=== PATIENT | male | born 1965 | race Caucasian/White ===

== ENCOUNTER 2016-07-04 12:38 | Emergency (ER) | payer OTHER, BC ==
--- NOTE | 2016-07-04 13:21 | Emergency Department Record ---
History of Present Illness - General Chief complaint: Bite Insect/other Stated complaint: BUG BIT ON LEFT LEG Time Seen by Provider: 07/04/16 13:21 Source: Patient, RN notes reviewed Mode of Arrival: Ambulatory - History of Present Illness Initial comments: redness on the back of the left leg and he squeezed out pus yesterday and he has had these before. Onset/Timin -: Days(s) Hx Tetanus Toxoid Vaccination: Yes Patient Tetanus UTD (within 5 yrs): Yes Location: LLE Severity: Moderate Severity scale (1-10): 7 Quality: Aching Consistency: Constant Improves with: Immobilization, Rest Worsens with: Movement Context: None Associated symptoms: Itching - Related Data Home Medications Medication Instructions Recorded Confirmed Last Taken Bupropion HCl [Bupropion Xl] 150 mg PO QHS 02/04/14 07/04/16 1 Day Ago Citalopram Hydrobromide 20 mg PO QHS 02/04/14 07/04/16 1 Day Ago [Citalopram HBr] Glipizide [Glipizide ER] 5 mg PO DAILY 02/04/14 07/04/16 07/03/16 Metformin HCl [Glucophage] 1,000 mg PO BID 02/04/14 07/04/16 07/03/16 Previous Rx's Medication Instructions Recorded Sulfamethoxazole/Trimethoprim 1 each PO BID #20 tablet 07/04/16 [Bactrim Ds Tablet] Allergies Allergy/AdvReac Type Severity Reaction Status Date / Time lisinopril Allergy RESPIRATORY Unverified 03/05/16 19:54 IRRITATION Travel Screening - Travel/Exposure Within Last 30 Days Have you traveled within the last 30 days?: No Review of Systems Reviewed: No additional complaints except as noted below Constitutional: Reports: As per HPI. Denies: Chills, Fever, Malaise, Night sweats, Weakness, Weight change Eyes: Reports: As per HPI. Denies: Eye discharge, Eye pain, Photophobia, Vision change ENT: Reports: As per HPI. Denies: Congestion, Dental pain, Ear pain, Epistaxis , Hearing loss, Throat pain Respiratory: Reports: As per HPI. Denies: Cough, Dyspnea, Hemoptysis, Stridor, Wheezes Cardiovascular: Reports: As per HPI. Denies: Arrhythmia, Chest pain, Dyspnea on exertion, Edema, Murmurs, Orthopnea, Palpitations, Paroxysmal nocturnal dyspnea, Rheumatic Fever, Syncope Endocrine: Reports: As per HPI. Denies: Fatigue, Heat or cold intolerance, Polydipsia, Polyuria Gastrointestinal: Reports: As per HPI. Denies: Abdominal pain, Constipation, Diarrhea, Hematemesis, Hematochezia, Melena, Nausea, Vomiting Genitourinary: Reports: As per HPI. Denies: Dysuria, Frequency, Hematuria, Incontinence, Retention, Testicular pain, Testicular mass, Urgency Musculoskeletal: Reports: As per HPI. Denies: Arthralgia, Back pain, Gout, Joint swelling, Myalgia, Neck pain Skin: Reports: As per HPI, Other (furuncle with redness and it drained by him sqeezing yesterday). Denies: Bruising, Change in color, Change in hair/nails, Lesions, Pruritus, Rash Neurological: Reports: As per HPI. Denies: Abnormal gait, Confusion, Headache, Numbness, Paresthesias, Seizure, Tingling, Tremors, Vertigo, Weakness Psychiatric: Reports: As per HPI. Denies: Anxiety, Auditory hallucinations, Depression, Homicidal thoughts, Suicidal thoughts, Visual hallucinations Hematological/Lymphatic: Reports: As per HPI. Denies: Anemia, Blood Clots, Easy bleeding, Easy bruising, Swollen glands Past Medical History - SOCIAL HISTORY Smoking Status: Never smoker Alcohol Use: None Drug Use: None - RESPIRATORY Hx Respiratory Disorders: No - CARDIOVASCULAR Hx Cardio Disorders: No - NEURO Hx Neuro Disorders: No - GI Hx GI Disorders: No - Hx Genitourinary Disorders: No - ENDOCRINE Hx Endocrine Disorders: Yes Hx Diabetes: Yes - MUSCULOSKELETAL Hx Musculoskeletal Disorders: No - PSYCH Hx Psych Problems: Yes Hx Depression: Yes - HEMATOLOGY/ONCOLOGY Hx Hematology/Oncology Disorders: No Family Medical History Any Significant Family History?: Yes Hx Heart Disease: Father, Mother, Grandparents Hx HTN: Father, Mother Physical Exam - General General Appearance: Alert, Oriented x3, Cooperative, No acute distress - Head Head exam: Normal inspection - Eye Eye exam: Normal appearance, PERRL Pupils: Normal accommodation - ENT ENT exam: Normal exam, Mucous membranes moist, Normal external ear exam, Normal orophraynx, TM's normal bilaterally Ear exam: Normal external inspection. negative: External canal tenderness Nasal Exam: Normal inspection. negative: Discharge, Sinus tenderness Mouth exam: Normal external inspection, Tongue normal Teeth exam: Normal inspection. negative: Dental caries Throat exam: Normal inspection. negative: Tonsillar erythema, Tonsillar exudate - Neck Neck exam: Normal inspection, Full ROM. negative: Tenderness - Respiratory Respiratory exam: Normal lung sounds bilaterally. negative: Respiratory distress - Cardiovascular Cardiovascular Exam: Regular rate, Normal rhythm, Normal heart sounds - GI/Abdominal GI/Abdominal exam: Soft, Normal bowel sounds. negative: Tenderness - Rectal Rectal exam: Deferred - exam: Deferred - Extremities Extremities exam: Normal inspection, Full ROM, Normal capillary refill. negative: Tenderness - Back Back exam: Reports: Normal inspection, Full ROM. Denies: Muscle spasm, Rash noted, Tenderness - Neurological Neurological exam: Alert, Normal gait, Oriented X3, Reflexes normal - Psychiatric Psychiatric exam: Normal affect, Normal mood - Skin Skin exam: Warm, Other (red skin around a furucle and painful) Course Vital Signs 07/04/16 12:44 Temperature 97.4 F L Pulse Rate 91 H Respiratory 16 Rate Blood Pressure 138/89 Pulse Ox 100 nothing to drain Disposition Clinical Impression: Cellulitis Qualifiers: Site of cellulitis: extremity Site of cellulitis of extremity: lower extremity Laterality: left Qualified Code(s): L03.116 - Cellulitis of left lower limb Disposition: Home, Self-Care Condition: (1) Good Instructions: Cellulitis (ED) Additional Instructions: warm compresses to the area four times a day follow up with family in 2 to 5 days Prescriptions: Sulfamethoxazole/Trimethoprim [Bactrim Ds Tablet] 1 each PO BID #20 tablet Forms: Patient Portal Access Time of Disposition: 14:20
[2016-07-04] MEDS ORDERED: CLINDAMYCIN 600MG/50ML PREMIX 600 MG in DEXTROSE 1 BAG IV ONE (13:36)
== END 2016-07-04 15:10 | disposition home or self-care (01) ==
LOC: ER 12:38
DX: L03.116 Cellulitis of left lower limb (principal)
CPT/HCPCS: 96365; 99284

== ENCOUNTER 2016-07-06 13:42 | Observation (INO) | payer OTHER, BC ==
[2016-07-06] MEDS ORDERED: CLINDAMYCIN 600MG/50ML PREMIX 600 MG in DEXTROSE 1 BAG IV ONE (13:53)
--- NOTE | 2016-07-06 14:00 | Emergency Department Record ---
History of Present Illness - General Chief Complaint: Wound, check Stated Complaint: WOUND CHECK Time Seen by Provider: 07/06/16 13:44 Source: Patient, Family Mode of arrival: Ambulatory Limitations: No limitations - History of Present Illness Initial Comments: 50 yo male presents with redness and swelling of the lower leg behind the knee. The area started with a papule that he thought might be a bite. He did not witness any bits. He was seen in the ED on the . The area has increased in redness and swelling on Bactrim. No other current symptoms. He is allergic to PCN. Per the patient the redness was localized to behind the knee on the but now it is down the leg near the foot. MD Complaint: Wound re-check -: Days(s) (3) Initial Visit For: Abscess Returns Today for: Cellulitis follow-up Symptoms Since Prior Visit: Worsening redness Associated Symptoms: None - Related Data Home Medications Medication Instructions Recorded Confirmed Last Taken Bupropion HCl [Bupropion Xl] 150 mg PO QHS 02/04/14 07/06/16 07/05/16 Citalopram Hydrobromide 20 mg PO QHS 02/04/14 07/06/16 07/05/16 [Citalopram HBr] Glipizide [Glipizide ER] 5 mg PO DAILY 02/04/14 07/06/16 07/06/16 Metformin HCl [Glucophage] 1,000 mg PO BID 02/04/14 07/06/16 07/06/16 Previous Rx's Medication Instructions Recorded Sulfamethoxazole/Trimethoprim 1 each PO BID #20 tablet 07/04/16 [Bactrim Ds Tablet] Allergies Allergy/AdvReac Type Severity Reaction Status Date / Time amoxicillin Allergy heartburn Verified 07/06/16 14:06 lisinopril Allergy RESPIRATORY Verified 07/06/16 14:06 IRRITATION Review of Systems Constitutional: Denies: Chills, Fever, Weakness Eyes: Denies: Eye discharge ENT: Denies: Congestion, Throat pain Respiratory: Denies: Cough Cardiovascular: Denies: Chest pain, Palpitations, Syncope Endocrine: Denies: Fatigue Gastrointestinal: Denies: Abdominal pain, Diarrhea, Nausea, Vomiting Genitourinary: Denies: Hematuria Musculoskeletal: Reports: Myalgia. Denies: Arthralgia, Back pain Skin: Reports: Change in color, Rash Neurological: Denies: Headache Psychiatric: Denies: Anxiety Hematological/Lymphatic: Denies: Blood Clots, Easy bleeding, Easy bruising, Swollen glands Past Medical History - SOCIAL HISTORY Smoking Status: Never smoker Drug Use: None - RESPIRATORY Hx Respiratory Disorders: No - CARDIOVASCULAR Hx Cardio Disorders: No - NEURO Hx Neuro Disorders: No - GI Hx GI Disorders: No - Hx Genitourinary Disorders: No - ENDOCRINE Hx Endocrine Disorders: Yes Hx Diabetes: Yes - MUSCULOSKELETAL Hx Musculoskeletal Disorders: No - PSYCH Hx Psych Problems: Yes Hx Depression: Yes - HEMATOLOGY/ONCOLOGY Hx Hematology/Oncology Disorders: No Family Medical History Hx Heart Disease: Father, Mother, Grandparents Hx HTN: Father, Mother Physical Exam - General General Appearance: Alert, Oriented x3, Cooperative, No acute distress Limitations: No limitations - Head Head exam: Normal inspection - Eye Eye exam: Normal appearance, PERRL - ENT ENT exam: Normal exam Ear exam: Normal external inspection Nasal Exam: Normal inspection Mouth exam: Normal external inspection Teeth exam: Normal inspection Throat exam: Normal inspection - Neck Neck exam: Normal inspection, Full ROM. negative: Tenderness - Respiratory Respiratory exam: Normal lung sounds bilaterally. negative: Respiratory distress - Cardiovascular Cardiovascular Exam: Regular rate, Normal rhythm, Normal heart sounds - Rectal Rectal exam: Deferred - exam: Deferred - Extremities Extremities exam: Calf tenderness, Normal capillary refill, Pedal edema, Tenderness. negative: Normal inspection Image of Full Body: 1 - papule with mild fluctuance, no drainage 2 - erythema, tenderness, swelling - Back Back exam: Reports: Normal inspection, Full ROM. Denies: Muscle spasm, Rash noted, Tenderness - Neurological Neurological exam: Alert, Normal gait, Oriented X3, Reflexes normal - Psychiatric Psychiatric exam: Normal affect, Normal mood - Skin Skin exam: Erythema Course - Reevaluation(s) Reevaluation #1: EMR reviewed 07/06/16 13:53 Reevaluation #2: The labs were reviewed. Mild increase in CRP. CR 1.3. 07/06/16 14:54 Reevaluation #3: Procedure: I and D US used to locate a small fluid collection Lidocaine with Epi 3ml Betadine prep 15 Blade used to open the abscess Pus visualized, culture obtained, cavity broken up, irrigated until clear 1/4 inch drain placed. dressing placed Tolerated well. 07/06/16 15:24 Reevaluation #4: The doppler was negative I discussed the admission with Jennifer DAILY OBChaz for IV antbiotics with pending culture 07/06/16 16:15 Medical Decision Making - Lab Data Result diagrams: 07/06/16 14:00 07/06/16 14:00 Disposition Disposition: Admit Clinical Impression: Abscess Cellulitis Qualifiers: Site of cellulitis: extremity Site of cellulitis of extremity: lower extremity Laterality: left Qualified Code(s): L03.116 - Cellulitis of left lower limb Disposition: Still a Patient at [facility] Decision to Admit: Admit from ER Decision to Admit Date: 07/06/16 Decision to Admit Time: 15:25 Condition: (1) Good Forms: Patient Portal Access Time of Disposition: 15:26
[2016-07-06 14:08] LABS: BASO % 0.4 % (0-6); GRAN % 72.9 % (47-80); HEMATOCRIT 44.5 % (42.0-52.0); HEMOGLOBIN 15.3 gm/dl (14.0-18.0); LYMPH % 16.5 % (16-45); MEAN CELL VOLUME 85.9 fl (81-97); MEAN CORPUSCULAR HEMOGLOBIN 29.5 pg (27-33); MEAN CORPUSCULAR HGB CONC 34.4 g/dl (32-36); MEAN PLATELET VOLUME 9.5 fl (7.4-10.4); MONO % 8.2 % (0-9); PLATELET COUNT 225 K/uL (130-400); RED BLOOD COUNT 5.18 M/uL (4.40-5.70); RED CELL DISTRIBUTION WIDTH 12.5 % (11.5-14.5); WHITE BLOOD COUNT W/O DIFF 10.5 K/uL (4.2-12.2)
[2016-07-06 14:21] LABS: ALB/GLOB RATIO 1.3 (1.1-1.8); ALBUMIN 4.4 gm/dL (3.5-5.0); ALKALINE PHOSPHATASE 92 U/L (38-126); ALT/SGPT 79 U/L (21-72); ANION GAP 10.8 (7-16); AST/SGOT 36 U/L (17-59); BILIRUBIN,TOTAL 0.82 mg/dL (0.2-1.3); BLOOD UREA NITROGEN 15 mg/dL (9-20); C-REACTIVE PROTEIN 2.9 mg/dL (0.0-0.9); CARBON DIOXIDE 24.2 mmol/L (22-30); CREATININE 1.3 mg/dL (0.66-1.25); EST GLOMERULAR FILTRATION RATE > 60 ml/min; GLUCOSE,RANDOM 171 mg/dL (70-110); TOTAL PROTEIN 7.8 gm/dL (6.3-8.2)
[2016-07-06 14:41] LABS: ERYTHROCYTE SEDIMENTATION RATE 7 mm/hr (0-15)
[2016-07-06] MEDS ORDERED: ACETAMINOPHEN 500 MG TABLET PO PRN (16:17)
[2016-07-06] MEDS: CLINDAMYCIN 600MG/50ML PREMIX 600 MG in DEXTROSE 1 BAG IV SCH ×3 (17:14→23:39)
[2016-07-06] MEDS ORDERED: METFORMIN 500 MG TABLET PO SCH (18:30)
[2016-07-06] MEDS: CITALOPRAM 20 MG TABLET PO SCH ×2 (18:59→21:40)
[2016-07-06] MEDS: BUPROPION HCL 150 MG TAB.SR.12H PO SCH ×2 (19:01→21:40)
--- NOTE | 2016-07-06 19:17 | History & Physical ---
History of Present Illness - Date of Service Date of Service for History & Physical: 07/07/16 - History of Present Illness Admitting Diagnosis: Cellulitis with abscess History of Present Illness: 50 yo male admitted w CC of cellulitis abscess. PMHx of type 2 diabetes and depression. Patient presented to the ED c/o painful, redness and swelling to the left, lower , posterior leg. Onset about 4-5 days ago. Patient thought he had a small bite behind his knee, which quickly became larger. Patient was seen in our ED , placed on Bactrim and encouraged to follow up with his primary provider. Patient returned today as site progressively became more red and inflamed. While in the ED, VSS, CBC/CMP relatively normal. CRP slightly elevated at 2.9. Fluid collection noted on U/S of site. I&D performed w/ culture of secreted fluid. Doppler of lower extremity negative. Patient started on IV Clindamycin and admitted for further observation. He denies h/o cellulitis in the past. No h/o MRSA per patient. states most recent hgbA1c ~ 8. Denies significant cardiac hx. no h/o DVT. 07/07/16: patient lying in bed comfortably w/ at bedside. c/o less tightness of LLE. pain well controlled with tylenol prn. he reports less redness at site. afebrile. normal appetite. normal GI/ function. PCP: Dr. Rita Sorenson D.O. Travel Screening - Travel/Exposure Within Last 30 Days Have you traveled within the last 30 days?: No - Travel/Exposure Within Last Year Have you traveled outside the [place] in the last year?: No - Additonal Travel Details Have you been exposed to anyone with a communicable illness?: No - Travel Symptoms Symptom Screening: None Review of Systems Constitutional: Denies: Chills, Fever, Weakness Eyes: Denies: Eye discharge ENT: Denies: Congestion, Throat pain Respiratory: Denies: Cough Cardiovascular: Denies: Chest pain, Palpitations, Syncope Endocrine: Denies: Fatigue Gastrointestinal: Denies: Abdominal pain, Diarrhea, Nausea, Vomiting Genitourinary: Denies: Hematuria Musculoskeletal: Reports: Myalgia. Denies: Arthralgia, Back pain Skin: Reports: Change in color, Rash Neurological: Denies: Headache Psychiatric: Denies: Anxiety Hematological/Lymphatic: Denies: Blood Clots, Easy bleeding, Easy bruising, Swollen glands Past Medical History - SOCIAL HISTORY Smoking Status: Never smoker Alcohol Use: None Drug Use: None - RESPIRATORY Hx Respiratory Disorders: No - CARDIOVASCULAR Hx Cardio Disorders: No - NEURO Hx Neuro Disorders: No - GI Hx GI Disorders: No - Hx Genitourinary Disorders: No - ENDOCRINE Hx Endocrine Disorders: Yes Hx Diabetes: Yes - MUSCULOSKELETAL Hx Musculoskeletal Disorders: No - PSYCH Hx Psych Problems: Yes Hx Depression: Yes - HEMATOLOGY/ONCOLOGY Hx Hematology/Oncology Disorders: No Family Medical History Any Significant Family History?: No Hx Diabetes: Father, Mother, Brother/Sister, Grandparents Hx Heart Disease: Father, Mother, Grandparents Hx HTN: Father, Mother H&P Meds/Allergies - Allergies Allergies: Allergies Allergy/AdvReac Type Severity Reaction Status Date / Time amoxicillin Allergy heartburn Verified 07/06/16 14:06 lisinopril Allergy RESPIRATORY Verified 07/06/16 14:06 IRRITATION - Home Medications Home Medications Medication Instructions Recorded Confirmed Last Taken Citalopram Hydrobromide 20 mg PO QHS 02/04/14 07/06/16 07/05/16 [Citalopram HBr] Metformin HCl [Glucophage] 1,000 mg PO BID 02/04/14 07/06/16 07/06/16 Bupropion HCl [Wellbutrin Xl] 300 mg PO QHS 07/07/16 07/07/16 Unknown Glipizide [Glipizide ER] 20 mg PO DAILYWM 07/07/16 07/07/16 Unknown Sitagliptin Phosphate [Januvia] 100 mg PO DAILY 07/07/16 07/07/16 Unknown Previous Rx's Medication Instructions Recorded Sulfamethoxazole/Trimethoprim 1 each PO BID #20 tablet 07/04/16 [Bactrim Ds Tablet] - Active Medications Active Medications: Current Medications Acetaminophen (Tylenol 500mg Tab) 1,000 mg PO Q6H PRN PRN Reason: Pain - General Bupropion HCl (Wellbutrin Sr) 150 mg PO 2200 [facility] Last Admin: 07/06/16 19:01 Dose: 150 mg Citalopram Hydrobromide (Celexa) 20 mg PO 2200 [facility] Last Admin: 07/06/16 18:59 Dose: 20 mg Enoxaparin Sodium (Lovenox) 40 mg SC DAILY [facility] Glipizide (Glucotrol Xl) 5 mg PO 0800 [facility] Clindamycin Phosphate 600 mg/ (Glucose) 50 mls @ 50 mls/30 min IV Q8H [facility] Last Admin: 07/06/16 17:14 Dose: Not Given Metformin HCl (Glucophage Ir) 1,000 mg PO BIDWM [facility] Physical Exam - General General Appearance: Alert, Oriented x3, Cooperative, No acute distress Limitations: No limitations - Head Head exam: Normal inspection - Eye Eye exam: Normal appearance, PERRL - ENT ENT exam: Normal exam Ear exam: Normal external inspection Nasal Exam: Normal inspection Mouth exam: Normal external inspection Teeth exam: Normal inspection Throat exam: Normal inspection - Neck Neck exam: Normal inspection, Full ROM. negative: Tenderness - Respiratory Respiratory exam: Normal lung sounds bilaterally. negative: Respiratory distress - Cardiovascular Cardiovascular Exam: Regular rate, Normal rhythm, Normal heart sounds - Rectal Rectal exam: Deferred - exam: Deferred - Extremities Extremities exam: Calf tenderness, Full ROM, Normal capillary refill, Tenderness. negative: Normal inspection, Joint swelling, Pedal edema - Back Back exam: Reports: Normal inspection, Full ROM. Denies: Muscle spasm, Rash noted, Tenderness - Neurological Neurological exam: Alert, Normal gait, Oriented X3, Reflexes normal - Psychiatric Psychiatric exam: Normal affect, Normal mood - Skin Skin exam: Erythema (decreased) Results - Labs Result Diagrams: 07/06/16 14:00 07/06/16 14:00 VTE H&P Assessment - Risk for VTE Risk for VTE: Yes Risk Level: Low Risk Assessment Date: 07/06/16 Risk Assessment Time: 17:00 VTE Orders Placed or Will Be Placed: Yes Plan - Detailed Diagnosis and Plan (1) Abscess Current Visit: Yes Status: Acute Base Code: L02.91 - CUTANEOUS ABSCESS, UNSPECIFIED Comment: 07/06/16: area s/p I&D w/ packing in the ED. culture pending. lower extremity doppler negative for dvt. afebrile. normal wbc. continue IV clindamycin 600 mg Q8 hours. monitor site closely for decreased inflammation and erythema. (2) Cellulitis Current Visit: Yes Status: Acute Qualifiers: Site of cellulitis: extremity Site of cellulitis of extremity: lower extremity Laterality: left Qualified Code(s): L03.116 - Cellulitis of left lower limb Base Code: L03.90 - CELLULITIS, UNSPECIFIED Comment: 07/06/16: area s/p I&D in the ED. culture pending. lower extremity doppler negative for dvt. afebrile. normal wbc. continue IV clindamycin 600 mg Q8 hours. monitor site closely for decreased inflammation and erythema. (3) Diabetes Current Visit: Yes Status: Acute Base Code: E11.9 - TYPE 2 DIABETES MELLITUS WITHOUT COMPLICATIONS Comment: 07/06/16: continue home medications. diabetic diet. (4) DVT prophylaxis Current Visit: Yes Status: Acute Base Code: [id number] - Comment: 07/06/16: low risk. 40 mg of SQ Lovenox initiated noting decreased ambulation. (5) Full code status Current Visit: Yes Status: Acute Base Code: Z78.9 - OTHER SPECIFIED HEALTH STATUS Comment: 07/06/16: patient is full code
[2016-07-07] MEDS: DIPHENHYDRAMINE HCL 25 MG CAPSULE PO PRN ×2 (00:50→10:47)
[2016-07-07] MEDS ORDERED: GLIPIZIDE XL 5 MG TABLET PO SCH (08:00)
[2016-07-07] MEDS ORDERED: METFORMIN 500 MG TABLET PO SCH (08:00)
[2016-07-07] MEDS: CLINDAMYCIN 600MG/50ML PREMIX 600 MG in DEXTROSE 1 BAG IV SCH ×2 (08:30→13:07)
[2016-07-07] MEDS ORDERED: ENOXAPARIN 40 MG/0.4 ML SYR SC SCH (10:00)
--- NOTE | 2016-07-07 12:25 | Discharge Summary ---
Providers Discharge Summary Date: 07/07/16 Date of admission: 07/06/16 16:30 Expected Date of Discharge: 07/07/16 Attending physician: BELKIS CHRISTIAN Primary care physician: ASAD CABAN D.O. Physical Exam - Vital Signs Vital Signs: Vital Signs - Last 24 Hrs Temp Pulse Resp BP Pulse Ox 07/07/16 08:43 79 16 07/07/16 08:00 97.8 F 79 18 136/91 99 07/07/16 00:16 98.3 F 81 18 126/77 99 07/06/16 19:41 90 18 - General General Appearance: Alert, Oriented x3, Cooperative, No acute distress Limitations: No limitations - Head Head exam: Normal inspection - Eye Eye exam: Normal appearance, PERRL - ENT ENT exam: Normal exam Ear exam: Normal external inspection Nasal Exam: Normal inspection Mouth exam: Normal external inspection Teeth exam: Normal inspection Throat exam: Normal inspection - Neck Neck exam: Normal inspection, Full ROM. negative: Tenderness - Respiratory Respiratory exam: Normal lung sounds bilaterally. negative: Respiratory distress - Cardiovascular Cardiovascular Exam: Regular rate, Normal rhythm, Normal heart sounds - Rectal Rectal exam: Deferred - exam: Deferred - Extremities Extremities exam: Calf tenderness, Full ROM, Normal capillary refill, Tenderness. negative: Normal inspection, Joint swelling, Pedal edema - Back Back exam: Reports: Normal inspection, Full ROM. Denies: Muscle spasm, Rash noted, Tenderness - Neurological Neurological exam: Alert, Normal gait, Oriented X3, Reflexes normal - Psychiatric Psychiatric exam: Normal affect, Normal mood - Skin Skin exam: Erythema (decreased) Hospitalization - Hospitalization Admission Diagnosis: Cellulitis with abscess - Problem List/Discharge Diagnosis (1) Abscess Current Visit: Yes Status: Acute Base Code: L02.91 - CUTANEOUS ABSCESS, UNSPECIFIED Comment: 07/07/16: area s/p I&D in the ED 07/06/16 with packing. culture pending. lower extremity doppler negative for dvt. afebrile. normal wbc. 10 day course of PO clindamycin 300 mg Q6 hours. OTC Tylenol as needed for discomfort. patient agree's to monitor site closely for increased inflammation and erythema. Encouraged patient to keep site clean and covered. Follow up with primary provider within 2-3 days of discharge. please return to the ER regarding any worsening pain, redness, drainaged from site or inflammation. (2) Cellulitis Current Visit: Yes Status: Acute Discharge Diagnosis: Site of cellulitis: extremity Site of cellulitis of extremity: lower extremity Laterality: left Qualified Code(s): L03.116 - Cellulitis of left lower limb Base Code: L03.90 - CELLULITIS, UNSPECIFIED Comment: 07/07/16: area s/p I&D in the ED 07/06/16 with packing. culture pending. lower extremity doppler negative for dvt. afebrile. normal wbc. 10 day course of PO clindamycin 300 mg Q6 hours. OTC Tylenol as needed for discomfort. patient agree's to monitor site closely for increased inflammation and erythema. Encouraged patient to keep site clean and covered. Follow up with primary provider within 2-3 days of discharge. please return to the ER regarding any worsening pain, redness, drainaged from site or inflammation. (3) Diabetes Current Visit: Yes Status: Acute Base Code: E11.9 - TYPE 2 DIABETES MELLITUS WITHOUT COMPLICATIONS Comment: 07/07/16: continue home medications. tight glucose control. diabetic diet. (4) Full code status Current Visit: Yes Status: Acute Base Code: Z78.9 - OTHER SPECIFIED HEALTH STATUS Comment: 07/07/16: patient remained full code during his stay. - Hospitalization Course Disposition: Home, Self-Care Hospital Course: 50 yo male admitted w CC of cellulitis abscess. PMHx of type 2 diabetes and depression. Patient presented to the ED c/o painful, redness and swelling to the left, lower , posterior leg. Onset about 4-5 days ago. Patient thought he had a small bite behind his knee, which quickly became larger. Patient was seen in our ED , placed on Bactrim and encouraged to follow up with his primary provider. Patient returned today as site progressively became more red and inflamed. While in the ED, VSS, CBC/CMP relatively normal. CRP slightly elevated at 2.9. Fluid collection noted on U/S of site. I&D performed w/ culture of secreted fluid. Doppler of lower extremity negative. Patient started on IV Clindamycin and admitted for further observation. He denies h/o cellulitis in the past. No h/o MRSA per patient. states most recent hgbA1c ~ 8. Denies significant cardiac hx. no h/o DVT. 07/07/16: patient lying in bed comfortably w/ at bedside. c/o less tightness of LLE. pain well controlled with tylenol prn. he reports less redness at site. afebrile. normal appetite. normal GI/ function. PCP: Dr. Asad Caban D.O. Abnormal Labs: Abnormal Lab Results 07/07/16 Range/Units 07:55 POC Glucose 132 H (70-110) mg/dL Condition at Discharge: (1) Good Discharge Medications - Discharge Medications Prescriptions: Clindamycin HCl [Cleocin HCl] 300 mg PO QID #36 capsule Home Medications: Ambulatory Orders Citalopram Hydrobromide [Citalopram HBr] 20 mg PO QHS 02/04/14 [Last Taken 07/05] Metformin HCl [Glucophage Ir] 1,000 mg PO BID 02/04/14 [Last Taken 07/06/16] Bupropion HCl [Wellbutrin Xl] 300 mg PO QHS 07/07/16 [Last Taken Unknown] Clindamycin HCl [Cleocin HCl] 300 mg PO QID #36 capsule 07/07/16 [Last Taken Unknown] Glipizide [Glipizide ER] 20 mg PO DAILYWM 07/07/16 [Last Taken Unknown] Sitagliptin Phosphate [Januvia] 100 mg PO DAILY 07/07/16 [Last Taken Unknown] Discharge Plan - Discharge Instructions Activity at Discharge: Increase Activity as Tolerated Diet at Discharge: Regular Diet, Diabetic Diet Additional Instructions: Continue home medications. client support consultant antibiotic (Clindamycin) from pharmacy and take as directed. Please be sure to complete the entire antibiotic. Monitor sugar level at home. Continue diabetic diet. Contact primary physician Saturday morning and schedule a follow up visit within 2 -3 days. You will need to keep site clean/bandage clean. Tylenol OTC as needed for any discomfort. Monitor for any worsening redness, pain, drainage from site. Return regarding any new or worsening symptoms such as those listed above.
[2016-07-07] MEDS ORDERED: PATIENT OWN MED: METFORMIN 500 MG PO SCH (17:30)
[2016-07-07] MEDS ORDERED: PATIENT OWN MED: CITALOPRAM 20 MG PO SCH (22:00)
[2016-07-07] MEDS ORDERED: PATIENT OWN MED: BUPROPION XL 300 MG PO SCH (22:00)
[2016-07-08] MEDS ORDERED: GLIPIZIDE 10 MG PO SCH (08:00)
--- NOTE | 2016-07-09 07:56 | US VENOUS DOPPLER REPORT ---
EXAM: VENOUS DOPPLER EXAMINATION OF THE LEFT LOWER EXTREMITY HISTORY: BUG BITE FIVE DAYS AGO. PAIN, SWELLING AND REDNESS OF THE LEFT LOWER LEG. TECHNIQUE: Knight scale, color Doppler and Duplex Doppler evaluation of the deep venous structures of the left lower extremity were performed from the level of the common femoral vein into the lower leg. Comparison: None. FINDINGS: The deep venous structures of the left lower extremity are well visualized, anechoic and easily compressible. Normal Doppler waveforms are noted throughout the deep venous structures of the left lower extremity and these are augmentable. The posterior and anterior tibial veins are visualized and appear patent. The peroneal veins are not visualized. No evidence of abscess in the popliteal fossa. IMPRESSION: NO EVIDENCE OF DEEP VENOUS THROMBOSIS WITHIN THE LEFT LOWER EXTREMITY. NO EVIDENCE OF ABSCESS. JOB NUMBER: [id number] [facility]
== END 2016-07-07 14:15 | disposition home or self-care (01) ==
LOC: ER 13:42 → MEDSURG 16:30
PROVIDERS: ADMIT Family Medicine; ATTEND Family Medicine
DX: L02.416 Cutaneous abscess of left lower limb (principal); L03.116 Cellulitis of left lower limb; E11.9 Type 2 diabetes mellitus without complications; Z79.84 Long term (current) use of oral hypoglycemic drugs; F32.9 Major depressive disorder, single episode, unspecified
CPT/HCPCS: 99285 ×2; 96365; 10060 ×2; 85025; 85651; 86140; 80053; 36416; 82948; 93971; G0378 ×2; J3490; 99220; J1650

== ENCOUNTER 2017-04-20 02:34 | Emergency (ER) | payer OTHER, BC ==
--- NOTE | 2017-04-20 02:53 | Emergency Department Record ---
History of Present Illness - General Chief complaint: Dental Stated complaint: DENTAL PAIN Time Seen by Provider: 04/20/17 02:48 Source: Patient Mode of Arrival: Ambulatory Limitations: No limitations - History of Present Illness Initial comments: 51 yo male presents to ED for evaluation of dental pain to the right upper tooth #5 that began 3 days ago. Patient called his dentist earlier today, however reports that the office was closed. Patient denies fevers, chills, or rent illness symptoms. Patient reports taking ibuprofen for his symptoms without significant improvement. MD complaint: Tooth pain Onset/Timin -: Days(s) Severity: Moderate Quality: Aching Consistency: Constant Improves with: None Worsens with: None - Related Data Previous Rx's Medication Instructions Recorded Clindamycin HCl [Cleocin HCl] 300 mg PO QID #28 capsule 04/20/17 Naproxen [Naprosyn] 500 mg PO Q12H #20 tab. 04/20/17 Allergies Allergy/AdvReac Type Severity Reaction Status Date / Time amoxicillin Allergy heartburn Verified 07/06/16 14:06 lisinopril Allergy RESPIRATORY Verified 07/06/16 14:06 IRRITATION Travel Screening - Travel/Exposure Within Last 30 Days Have you traveled within the last 30 days?: No - Travel/Exposure Within Last Year Have you traveled outside the [place] in the last year?: No - Additonal Travel Details Have you been exposed to anyone with a communicable illness?: No - Travel Symptoms Symptom Screening: None Review of Systems Constitutional: Denies: Chills, Fever, Malaise, Night sweats Eyes: Denies: Eye discharge, Eye pain ENT: Reports: Dental pain. Denies: Congestion, Ear pain Respiratory: Denies: Cough, Dyspnea Cardiovascular: Denies: Chest pain, Dyspnea on exertion Endocrine: Denies: Fatigue, Heat or cold intolerance Gastrointestinal: Denies: Abdominal pain, Nausea, Vomiting Genitourinary: Denies: Incontinence, Retention Musculoskeletal: Denies: Arthralgia, Back pain, Gout Skin: Denies: Bruising, Change in color Neurological: Reports: Headache. Denies: Abnormal gait, Confusion, Seizure Psychiatric: Denies: Anxiety Hematological/Lymphatic: Denies: Anemia, Blood Clots Past Medical History - SOCIAL HISTORY Smoking Status: Never smoker Alcohol Use: None Drug Use: None - RESPIRATORY Hx Respiratory Disorders: No - CARDIOVASCULAR Hx Cardio Disorders: No - NEURO Hx Neuro Disorders: No - GI Hx GI Disorders: No - Hx Genitourinary Disorders: No - ENDOCRINE Hx Endocrine Disorders: Yes Hx Diabetes: Yes - MUSCULOSKELETAL Hx Musculoskeletal Disorders: No - PSYCH Hx Psych Problems: Yes Hx Depression: Yes - HEMATOLOGY/ONCOLOGY Hx Hematology/Oncology Disorders: No Family Medical History Any Significant Family History?: No Hx Diabetes: Father, Mother, Brother/Sister, Grandparents Hx Heart Disease: Father, Mother, Grandparents Hx HTN: Father, Mother Physical Exam - General General Appearance: Alert, Oriented x3, Cooperative Limitations: No limitations - Head Head exam: Atraumatic, Normocephalic, Normal inspection Head exam detail: negative: Abrasion, Contusion, Quinones's sign, General tenderness, Hematoma, Laceration - Eye Eye exam: Normal appearance. negative: Conjunctival injection, Periorbital swelling, Periorbital tenderness, Scleral icterus - ENT Ear exam: negative: Auricular hematoma, Auricular trauma Nasal Exam: negative: Active bleeding, Discharge, Dried blood, Foreign body Mouth exam: Other (no gingival abscess is present on examination.). negative: Drooling, Laceration, Muffled voice, Tongue elevation Teeth exam: Dental caries, Dental tenderness # Image of Mouth/Teeth: 1 - Tenderness to palpation on examination - Neck Neck exam: Normal inspection. negative: Meningismus, Tenderness - Respiratory Respiratory exam: Normal lung sounds bilaterally. negative: Rales, Respiratory distress, Rhonchi, Stridor - Cardiovascular Cardiovascular Exam: Regular rate, Normal rhythm, Normal heart sounds - GI/Abdominal GI/Abdominal exam: Soft. negative: Rebound, Rigid, Tenderness - Rectal Rectal exam: Deferred - exam: Deferred - Extremities Extremities exam: Normal inspection. negative: Calf tenderness, Pedal edema, Tenderness - Back Back exam: Denies: CVA tenderness (R), CVA tenderness (L) - Neurological Neurological exam: Alert, Normal gait, Oriented X3 - Psychiatric Psychiatric exam: Normal affect, Normal mood - Skin Skin exam: Normal color. negative: Abrasion Type of lesion: negative: abrasion Course Vital Signs 04/20/17 02:37 Temperature 98.0 F Pulse Rate 89 Respiratory 20 Rate Blood Pressure 164/112 Pulse Ox 100 - Reevaluation(s) Reevaluation #1: 04/20/17 02:58 Patient reassessed and reports that his dental pain symptoms are improved following dental nerve block. Will discharge home on Clindamycin and Naprosyn as directed with instructions for dental follow-up in 3-5 days as directed. Procedures - Nerve Block Consent Obtained: Verbal consent Time Out Performed: Yes Local Anesthetic Used: Marcaine 0.25% Amount of anesthesia used: 1 Side: Right Intraoral Nerve Block: Superior alveolar Procedure Successful: Yes Complications: None Patient Tolerated Procedure: Good Disposition Disposition: Discharge Clinical Impression: Dental caries Disposition: Home, Self-Care Condition: (2) Stable Instructions: Dental Abscess (ED) Additional Instructions: Return to ED if your symptoms worsen or if you have any concerns. Clindamycin and Naprosyn as directed. Follow-up with your dentist in 3-5 days as directed. Prescriptions: Clindamycin HCl [Cleocin HCl] 300 mg PO QID #28 capsule Naproxen [Naprosyn] 500 mg PO Q12H #20 tab.dr Forms: Patient Portal Access Time of Disposition: 02:55 Quality - Quality Measures Quality Measures: N/A - Blood Pressure Screening Does Patient Have Any of the Following: No Blood Pressure Classification: Hypertensive Reading Systolic Measurement: 146 Diastolic Measurement: 97 Screening for High Blood Pressure: < First Hypertensive BP, F/U Documented > [ G8950] First Hypertensive Follow-up Interventions: Referral to alternative/primary care provider.
[2017-04-20] MEDS ORDERED: CLINDAMYCIN 150 MG CAP PO ONE (03:11)
== END 2017-04-20 03:12 | disposition home or self-care (01) ==
LOC: ER 02:34
DX: K02.9 Dental caries, unspecified (principal)
CPT/HCPCS: 64400; 99283

== ENCOUNTER 2017-04-20 17:20 | Emergency (ER) | payer OTHER, BC ==
[2017-04-20] MEDS ORDERED: CEFTRIAXONE 1 GRAM VIAL IM ONE (17:43)
--- NOTE | 2017-04-20 17:49 | Emergency Department Record ---
History of Present Illness - General Stated complaint: DENTAL PAIN Time Seen by Provider: 04/20/17 17:38 Source: Patient - History of Present Illness Initial comments: seen last night and given dental block and clindamycina and naprosyn. patient has an appointment with dentist on saturday and he says more swelling of gum. - Related Data Previous Rx's Medication Instructions Recorded Clindamycin HCl [Cleocin HCl] 300 mg PO QID #28 capsule 04/20/17 Naproxen [Naprosyn] 500 mg PO Q12H #20 tab.dr 04/20/17 Oxycodone HCl/Acetaminophen 1 tab PO Q6H PRN #10 tab 04/20/17 [Percocet 5mg/325mg] Allergies Allergy/AdvReac Type Severity Reaction Status Date / Time amoxicillin Allergy heartburn Verified 04/20/17 18:02 lisinopril Allergy RESPIRATORY Verified 04/20/17 18:02 IRRITATION Review of Systems Reviewed: No additional complaints except as noted below Constitutional: Reports: As per HPI. Denies: Chills, Fever, Malaise, Night sweats, Weakness, Weight change Eyes: Reports: As per HPI. Denies: Eye discharge, Eye pain, Photophobia, Vision change ENT: Reports: As per HPI, Dental pain. Denies: Congestion, Ear pain, Epistaxis , Hearing loss, Throat pain Respiratory: Reports: As per HPI. Denies: Cough, Dyspnea, Hemoptysis, Stridor, Wheezes Cardiovascular: Reports: As per HPI. Denies: Arrhythmia, Chest pain, Dyspnea on exertion, Edema, Murmurs, Orthopnea, Palpitations, Paroxysmal nocturnal dyspnea, Rheumatic Fever, Syncope Endocrine: Reports: As per HPI. Denies: Fatigue, Heat or cold intolerance, Polydipsia, Polyuria Gastrointestinal: Reports: As per HPI. Denies: Abdominal pain, Constipation, Diarrhea, Hematemesis, Hematochezia, Melena, Nausea, Vomiting Genitourinary: Reports: As per HPI. Denies: Dysuria, Frequency, Hematuria, Incontinence, Retention, Testicular pain, Testicular mass, Urgency Musculoskeletal: Reports: As per HPI. Denies: Arthralgia, Back pain, Gout, Joint swelling, Myalgia, Neck pain Skin: Reports: As per HPI. Denies: Bruising, Change in color, Change in hair/ nails, Lesions, Pruritus, Rash Neurological: Reports: As per HPI. Denies: Abnormal gait, Confusion, Headache, Numbness, Paresthesias, Seizure, Tingling, Tremors, Vertigo, Weakness Psychiatric: Reports: As per HPI. Denies: Anxiety, Auditory hallucinations, Depression, Homicidal thoughts, Suicidal thoughts, Visual hallucinations Hematological/Lymphatic: Reports: As per HPI. Denies: Anemia, Blood Clots, Easy bleeding, Easy bruising, Swollen glands Past Medical History - SOCIAL HISTORY Smoking Status: Never smoker Drug Use: None - RESPIRATORY Hx Respiratory Disorders: No - CARDIOVASCULAR Hx Cardio Disorders: No - NEURO Hx Neuro Disorders: No - GI Hx GI Disorders: No - Hx Genitourinary Disorders: No - ENDOCRINE Hx Endocrine Disorders: Yes Hx Diabetes: Yes - MUSCULOSKELETAL Hx Musculoskeletal Disorders: No - PSYCH Hx Psych Problems: Yes Hx Depression: Yes - HEMATOLOGY/ONCOLOGY Hx Hematology/Oncology Disorders: No Family Medical History Hx Diabetes: Father, Mother, Brother/Sister, Grandparents Hx Heart Disease: Father, Mother, Grandparents Hx HTN: Father, Mother Physical Exam - General General Appearance: Alert, Oriented x3, Cooperative, No acute distress - Head Head exam: Normal inspection - Eye Eye exam: Normal appearance, PERRL Pupils: Normal accommodation - ENT ENT exam: Normal exam, Mucous membranes moist, Normal external ear exam, Normal orophraynx, TM's normal bilaterally Ear exam: Normal external inspection. negative: External canal tenderness Nasal Exam: Normal inspection. negative: Discharge, Sinus tenderness Mouth exam: Normal external inspection, Tongue normal Teeth exam: Normal inspection. negative: Dental caries Throat exam: Normal inspection. negative: Tonsillar erythema, Tonsillar exudate - Neck Neck exam: Normal inspection, Full ROM. negative: Tenderness - Respiratory Respiratory exam: Normal lung sounds bilaterally. negative: Respiratory distress - Cardiovascular Cardiovascular Exam: Regular rate, Normal rhythm, Normal heart sounds - GI/Abdominal GI/Abdominal exam: Soft, Normal bowel sounds. negative: Tenderness - Rectal Rectal exam: Deferred - exam: Deferred - Extremities Extremities exam: Normal inspection, Full ROM, Normal capillary refill. negative: Tenderness - Back Back exam: Reports: Normal inspection, Full ROM. Denies: Muscle spasm, Rash noted, Tenderness - Neurological Neurological exam: Alert, Normal gait, Oriented X3, Reflexes normal - Psychiatric Psychiatric exam: Normal affect, Normal mood - Skin Skin exam: Dry, Intact, Normal color, Warm Disposition Clinical Impression: Pain, dental, Dental caries Disposition: Home, Self-Care Condition: (1) Good Instructions: Toothache (ED) Additional Instructions: follow up with dentist saturday continue clindamycin Prescriptions: Oxycodone HCl/Acetaminophen [Percocet 5mg/325mg] 1 tab PO Q6H PRN #10 tab PRN Reason: Analgesia Time of Disposition: 18:09 Quality - Quality Measures Quality Measures: N/A - Blood Pressure Screening Does Patient Have Any of the Following: No Blood Pressure Classification: Hypertensive Reading Systolic Measurement: 148 Diastolic Measurement: 101 Screening for High Blood Pressure: < Pre-Hypertensive BP, F/U Documented > [ G8950] Pre-Hypertensive Follow-up Interventions: Referral to alternative/primary care provider. First Hypertensive Follow-up Interventions: Referral to alternative/primary care provider.
--- NOTE | 2017-04-20 18:26 | Emergency Department Record ---
History of Present Illness - General Chief complaint: Dental Stated complaint: DENTAL PAIN Time Seen by Provider: 04/20/17 17:38 Source: Patient Mode of Arrival: Ambulatory - History of Present Illness Onset/Timin -: Days(s) - Related Data Previous Rx's Medication Instructions Recorded Cephalexin [Keflex] 500 mg PO QID #40 cap 04/20/17 Clindamycin HCl [Cleocin HCl] 300 mg PO QID #28 capsule 04/20/17 Naproxen [Naprosyn] 500 mg PO Q12H #20 tab.dr 04/20/17 Oxycodone HCl/Acetaminophen 1 tab PO Q6H PRN #10 tab 04/20/17 [Percocet 5mg/325mg] Allergies Allergy/AdvReac Type Severity Reaction Status Date / Time amoxicillin Allergy heartburn Verified 04/20/17 18:02 lisinopril Allergy RESPIRATORY Verified 04/20/17 18:02 IRRITATION Travel Screening - Travel/Exposure Within Last 30 Days Have you traveled within the last 30 days?: No - Travel/Exposure Within Last Year Have you traveled outside the [place] in the last year?: No - Travel Symptoms Symptom Screening: None Review of Systems Constitutional: Reports: As per HPI. Denies: Chills, Fever, Malaise, Night sweats, Weakness, Weight change Eyes: Reports: As per HPI. Denies: Eye discharge, Eye pain, Photophobia, Vision change ENT: Reports: As per HPI, Dental pain. Denies: Congestion, Ear pain, Epistaxis , Hearing loss, Throat pain Respiratory: Reports: As per HPI. Denies: Cough, Dyspnea, Hemoptysis, Stridor, Wheezes Cardiovascular: Reports: As per HPI. Denies: Arrhythmia, Chest pain, Dyspnea on exertion, Edema, Murmurs, Orthopnea, Palpitations, Paroxysmal nocturnal dyspnea, Rheumatic Fever, Syncope Endocrine: Reports: As per HPI. Denies: Fatigue, Heat or cold intolerance, Polydipsia, Polyuria Gastrointestinal: Reports: As per HPI. Denies: Abdominal pain, Constipation, Diarrhea, Hematemesis, Hematochezia, Melena, Nausea, Vomiting Genitourinary: Reports: As per HPI. Denies: Dysuria, Frequency, Hematuria, Incontinence, Retention, Testicular pain, Testicular mass, Urgency Musculoskeletal: Reports: As per HPI. Denies: Arthralgia, Back pain, Gout, Joint swelling, Myalgia, Neck pain Skin: Reports: As per HPI. Denies: Bruising, Change in color, Change in hair/ nails, Lesions, Pruritus, Rash Neurological: Reports: As per HPI. Denies: Abnormal gait, Confusion, Headache, Numbness, Paresthesias, Seizure, Tingling, Tremors, Vertigo, Weakness Psychiatric: Reports: As per HPI. Denies: Anxiety, Auditory hallucinations, Depression, Homicidal thoughts, Suicidal thoughts, Visual hallucinations Hematological/Lymphatic: Reports: As per HPI. Denies: Anemia, Blood Clots, Easy bleeding, Easy bruising, Swollen glands Past Medical History - SOCIAL HISTORY Smoking Status: Never smoker Drug Use: None - RESPIRATORY Hx Respiratory Disorders: No - CARDIOVASCULAR Hx Cardio Disorders: No - NEURO Hx Neuro Disorders: No - GI Hx GI Disorders: No - Hx Genitourinary Disorders: No - ENDOCRINE Hx Endocrine Disorders: Yes Hx Diabetes: Yes - MUSCULOSKELETAL Hx Musculoskeletal Disorders: No - PSYCH Hx Psych Problems: Yes Hx Depression: Yes - HEMATOLOGY/ONCOLOGY Hx Hematology/Oncology Disorders: No Family Medical History Hx Diabetes: Father, Mother, Brother/Sister, Grandparents Hx Heart Disease: Father, Mother, Grandparents Hx HTN: Father, Mother Course Vital Signs 04/20/17 04/20/17 17:46 18:22 Temperature 98.9 F 98.9 F Pulse Rate 84 82 Respiratory 20 20 Rate Blood Pressure 148/101 128/74 Pulse Ox 100 100 Disposition Clinical Impression: Pain, dental, Dental caries Disposition: Home, Self-Care Condition: (1) Good Instructions: Toothache (ED) Additional Instructions: follow up with dentist saturday continue clindamycin Prescriptions: Cephalexin [Keflex] 500 mg PO QID #40 cap Oxycodone HCl/Acetaminophen [Percocet 5mg/325mg] 1 tab PO Q6H PRN #10 tab PRN Reason: Analgesia Forms: Patient Portal Access Time of Disposition: 18:26 Quality - Quality Measures Quality Measures: N/A - Blood Pressure Screening Does Patient Have Any of the Following: No Blood Pressure Classification: Pre-Hypertensive BP Reading Systolic Measurement: 128 Diastolic Measurement: 74 Screening for High Blood Pressure: < Pre-Hypertensive BP, F/U Documented > [ G8950] Pre-Hypertensive Follow-up Interventions: Referral to alternative/primary care provider.
== END 2017-04-20 18:22 | disposition home or self-care (01) ==
LOC: ER 17:20
DX: K02.9 Dental caries, unspecified (principal)
CPT/HCPCS: 96372; 99283

== ENCOUNTER 2017-11-17 08:43 | Emergency (ER) | payer BC ==
[2017-11-17] MEDS ORDERED: METHYLPREDNISOLONE PF 125MG/VIAL IM ONE (09:21)
[2017-11-17] MEDS ORDERED: DIPHENHYDRAMINE HCL 50 MG/ML VIAL IM ONE (09:21)
--- NOTE | 2017-11-17 09:28 | Emergency Department Record ---
History of Present Illness - General Chief complaint: Allergic Reaction Stated complaint: ALLERGIC REACTION TO CAR SOAP Time Seen by Provider: 11/17/17 09:16 Source: Patient Mode of Arrival: Ambulatory Limitations: No limitations - History of Present Illness Initial Comments: pt has an allergic rxn to the tire washing agent he used yesterday. no flora or swelling. MD Complaint: Allergic reaction, Hives Onset/Timin -: Days(s) Exposure: Other Symptoms: Itching, Other Treatment Prior to Arrival: Benadryl - Related Data Allergies Allergy/AdvReac Type Severity Reaction Status Date / Time amoxicillin Allergy heartburn Verified 11/17/17 08:56 lisinopril AdvReac RESPIRATORY Verified 11/17/17 08:56 IRRITATION Travel Screening - Travel/Exposure Within Last 30 Days Have you traveled within the last 30 days?: Yes Location Detail:: [place] - Travel/Exposure Within Last Year Have you traveled outside the [place] in the last year?: No - Additonal Travel Details Have you been exposed to anyone with a communicable illness?: No - Travel Symptoms Symptom Screening: None Review of Systems Reviewed: No additional complaints except as noted below Constitutional: Reports: As per HPI. Denies: Chills, Fever, Malaise, Night sweats, Weakness, Weight change Eyes: Reports: As per HPI. Denies: Eye discharge, Eye pain, Photophobia, Vision change ENT: Reports: As per HPI. Denies: Congestion, Dental pain, Ear pain, Epistaxis , Hearing loss, Throat pain Respiratory: Reports: As per HPI. Denies: Cough, Dyspnea, Hemoptysis, Stridor, Wheezes Cardiovascular: Reports: As per HPI. Denies: Arrhythmia, Chest pain, Dyspnea on exertion, Edema, Murmurs, Orthopnea, Palpitations, Paroxysmal nocturnal dyspnea, Rheumatic Fever, Syncope Endocrine: Reports: As per HPI. Denies: Fatigue, Heat or cold intolerance, Polydipsia, Polyuria Gastrointestinal: Reports: As per HPI. Denies: Abdominal pain, Constipation, Diarrhea, Hematemesis, Hematochezia, Melena, Nausea, Vomiting Genitourinary: Reports: As per HPI. Denies: Dysuria, Frequency, Hematuria, Incontinence, Retention, Testicular pain, Testicular mass, Urgency Musculoskeletal: Reports: As per HPI. Denies: Arthralgia, Back pain, Gout, Joint swelling, Myalgia, Neck pain Skin: Reports: As per HPI. Denies: Bruising, Change in color, Change in hair/ nails, Lesions, Pruritus, Rash Neurological: Reports: As per HPI. Denies: Abnormal gait, Confusion, Headache, Numbness, Paresthesias, Seizure, Tingling, Tremors, Vertigo, Weakness Psychiatric: Reports: As per HPI. Denies: Anxiety, Auditory hallucinations, Depression, Homicidal thoughts, Suicidal thoughts, Visual hallucinations Hematological/Lymphatic: Reports: As per HPI. Denies: Anemia, Blood Clots, Easy bleeding, Easy bruising, Swollen glands Past Medical History - SOCIAL HISTORY Smoking Status: Never smoker Alcohol Use: None Drug Use: None - RESPIRATORY Hx Respiratory Disorders: No - CARDIOVASCULAR Hx Cardio Disorders: No - NEURO Hx Neuro Disorders: No - GI Hx GI Disorders: No - Hx Genitourinary Disorders: No - ENDOCRINE Hx Endocrine Disorders: Yes Hx Diabetes: Yes - MUSCULOSKELETAL Hx Musculoskeletal Disorders: No - PSYCH Hx Psych Problems: Yes Hx Depression: Yes - HEMATOLOGY/ONCOLOGY Hx Hematology/Oncology Disorders: No Family Medical History Any Significant Family History?: No Hx Diabetes: Father, Mother, Brother/Sister, Grandparents Hx Heart Disease: Father, Mother, Grandparents Hx HTN: Father, Mother Physical Exam - General General Appearance: Alert, Oriented x3, Cooperative, Mild distress - Head Head exam: Normal inspection - Eye Eye exam: Normal appearance, PERRL, EOMI Pupils: Normal accommodation - ENT ENT exam: Normal exam, Mucous membranes moist, Normal external ear exam, Normal orophraynx Ear exam: Normal external inspection. negative: External canal tenderness Nasal Exam: Normal inspection. negative: Discharge, Sinus tenderness Mouth exam: Normal external inspection, Tongue normal Teeth exam: Normal inspection. negative: Dental caries Throat exam: Normal inspection. negative: Tonsillar erythema, Tonsillar exudate - Neck Neck exam: Normal inspection, Full ROM. negative: Tenderness - Respiratory Respiratory exam: Normal lung sounds bilaterally. negative: Respiratory distress - Cardiovascular Cardiovascular Exam: Regular rate, Normal rhythm, Normal heart sounds - GI/Abdominal GI/Abdominal exam: Soft, Normal bowel sounds. negative: Tenderness - Rectal Rectal exam: Deferred - exam: Deferred - Extremities Extremities exam: Normal inspection, Full ROM, Normal capillary refill. negative: Tenderness - Back Back exam: Reports: Normal inspection, Full ROM. Denies: Muscle spasm, Rash noted, Tenderness - Neurological Neurological exam: Alert, CN II-XII intact, Normal gait, Oriented X3 - Psychiatric Psychiatric exam: Normal affect, Normal mood - Skin Skin exam: Dry, Intact, Normal color, Warm Type of lesion: Rash Distribution of rash: RUE, LUE Course Vital Signs 11/17/17 08:47 Temperature 97.6 F Pulse Rate 75 Respiratory 18 Rate Blood Pressure 139/86 Pulse Ox 99 Disposition Disposition: Discharge Clinical Impression: Allergic Qualifiers: Encounter type: initial encounter Qualified Code(s): T78.40XA - Allergy, unspecified, initial encounter Disposition: Home, Self-Care Condition: (1) Good Instructions: General Allergic Reaction (ED), Urticaria (ED) Additional Instructions: follow up with family doctor. return sooner if worse. continue benadryl as needed Quality - Quality Measures Quality Measures: N/A - Blood Pressure Screening Does Patient Have Any of the Following: No Blood Pressure Classification: Pre-Hypertensive BP Reading Systolic Measurement: 139 Diastolic Measurement: 86 Screening for High Blood Pressure: < Pre-Hypertensive BP, F/U Documented > [ G8950] Pre-Hypertensive Follow-up Interventions: Follow-up with rescreen every year.
--- NOTE | 2017-11-17 09:41 | Emergency Department Record ---
History of Present Illness - General Chief complaint: Allergic Reaction Stated complaint: ALLERGIC REACTION TO CAR SOAP Time Seen by Provider: 11/17/17 09:16 Source: Patient Mode of Arrival: Ambulatory Limitations: No limitations - History of Present Illness Onset/Timin -: Days(s) Exposure: Other Symptoms: Itching, Other Treatment Prior to Arrival: Benadryl - Related Data Previous Rx's Medication Instructions Recorded Prednisone [Prednisone 20Mg] 20 mg PO Q12HR #6 tab 11/17/17 Allergies Allergy/AdvReac Type Severity Reaction Status Date / Time amoxicillin Allergy heartburn Verified 11/17/17 08:56 lisinopril AdvReac RESPIRATORY Verified 11/17/17 08:56 IRRITATION Travel Screening - Travel/Exposure Within Last 30 Days Have you traveled within the last 30 days?: Yes Location Detail:: [place] - Travel/Exposure Within Last Year Have you traveled outside the [place] in the last year?: No - Additonal Travel Details Have you been exposed to anyone with a communicable illness?: No - Travel Symptoms Symptom Screening: None Review of Systems Constitutional: Reports: As per HPI. Denies: Chills, Fever, Malaise, Night sweats, Weakness, Weight change Eyes: Reports: As per HPI. Denies: Eye discharge, Eye pain, Photophobia, Vision change ENT: Reports: As per HPI. Denies: Congestion, Dental pain, Ear pain, Epistaxis , Hearing loss, Throat pain Respiratory: Reports: As per HPI. Denies: Cough, Dyspnea, Hemoptysis, Stridor, Wheezes Cardiovascular: Reports: As per HPI. Denies: Arrhythmia, Chest pain, Dyspnea on exertion, Edema, Murmurs, Orthopnea, Palpitations, Paroxysmal nocturnal dyspnea, Rheumatic Fever, Syncope Endocrine: Reports: As per HPI. Denies: Fatigue, Heat or cold intolerance, Polydipsia, Polyuria Gastrointestinal: Reports: As per HPI. Denies: Abdominal pain, Constipation, Diarrhea, Hematemesis, Hematochezia, Melena, Nausea, Vomiting Genitourinary: Reports: As per HPI. Denies: Dysuria, Frequency, Hematuria, Incontinence, Retention, Testicular pain, Testicular mass, Urgency Musculoskeletal: Reports: As per HPI. Denies: Arthralgia, Back pain, Gout, Joint swelling, Myalgia, Neck pain Skin: Reports: As per HPI. Denies: Bruising, Change in color, Change in hair/ nails, Lesions, Pruritus, Rash Neurological: Reports: As per HPI. Denies: Abnormal gait, Confusion, Headache, Numbness, Paresthesias, Seizure, Tingling, Tremors, Vertigo, Weakness Psychiatric: Reports: As per HPI. Denies: Anxiety, Auditory hallucinations, Depression, Homicidal thoughts, Suicidal thoughts, Visual hallucinations Hematological/Lymphatic: Reports: As per HPI. Denies: Anemia, Blood Clots, Easy bleeding, Easy bruising, Swollen glands Past Medical History - SOCIAL HISTORY Smoking Status: Never smoker Alcohol Use: None Drug Use: None - RESPIRATORY Hx Respiratory Disorders: No - CARDIOVASCULAR Hx Cardio Disorders: No - NEURO Hx Neuro Disorders: No - GI Hx GI Disorders: No - Hx Genitourinary Disorders: No - ENDOCRINE Hx Endocrine Disorders: Yes Hx Diabetes: Yes - MUSCULOSKELETAL Hx Musculoskeletal Disorders: No - PSYCH Hx Psych Problems: Yes Hx Depression: Yes - HEMATOLOGY/ONCOLOGY Hx Hematology/Oncology Disorders: No Family Medical History Any Significant Family History?: No Hx Diabetes: Father, Mother, Brother/Sister, Grandparents Hx Heart Disease: Father, Mother, Grandparents Hx HTN: Father, Mother Physical Exam - General Limitations: No limitations Course Vital Signs 11/17/17 08:47 Temperature 97.6 F Pulse Rate 75 Respiratory 18 Rate Blood Pressure 139/86 Pulse Ox 99 Disposition Clinical Impression: Allergic Qualifiers: Encounter type: initial encounter Qualified Code(s): T78.40XA - Allergy, unspecified, initial encounter Disposition: Home, Self-Care Condition: (1) Good Instructions: Urticaria (ED), General Allergic Reaction (ED) Additional Instructions: follow up with family doctor. return sooner if worse. continue benadryl as needed Prescriptions: Prednisone [Prednisone 20Mg] 20 mg PO Q12HR #6 tab Forms: Patient Portal Access Quality - Quality Measures Quality Measures: N/A - Blood Pressure Screening Does Patient Have Any of the Following: No Blood Pressure Classification: Pre-Hypertensive BP Reading Systolic Measurement: 139 Diastolic Measurement: 86 Screening for High Blood Pressure: < Pre-Hypertensive BP, F/U Documented > [ G8950] Pre-Hypertensive Follow-up Interventions: Follow-up with rescreen every year.
== END 2017-11-17 09:48 | disposition home or self-care (01) ==
LOC: ER 08:43
DX: L50.0 Allergic urticaria (principal)
CPT/HCPCS: 96372; 99282; 99283; J1200; J2930

== ENCOUNTER 2018-02-21 23:21 | Emergency (ER) | payer BC ==
--- NOTE | 2018-02-21 23:39 | Emergency Department Record ---
History of Present Illness - General Chief complaint: Flank Pain Stated complaint: L FLANK PAIN Time Seen by Provider: 02/21/18 23:26 Source: Patient, Family Mode of Arrival: Ambulatory Limitations: No limitations - History of Present Illness Initial comments: 52 yo male presents with left side pain that has been coming and going for about a week. The pain is like a cramp or contraction. No fevers. No chills. He states at times it is positional and other times not. He has some discomfort with urination early this week but reports he had a normal urine test. He has had a kidney stone in the past. No rash. No diarrhea. MD Complaint: Dysuria, Other (Left side pain) -: Week(s) Location: Left flank Radiation: L flank Severity: Moderate Quality: Aching, Other (Cramp like) Consistency: Intermittent Improves with: None Worsens with: Movement Other Reports: Dysuria (2-3 days ago) - Related Data Previous Rx's Medication Instructions Recorded Cephalexin [Keflex] 500 mg PO QID #40 cap 02/22/18 Allergies Allergy/AdvReac Type Severity Reaction Status Date / Time amoxicillin Allergy heartburn Verified 02/21/18 23:35 lisinopril AdvReac RESPIRATORY Verified 02/21/18 23:35 IRRITATION Review of Systems Constitutional: Denies: Chills, Fever, Malaise, Weakness Eyes: Denies: Eye discharge ENT: Denies: Congestion, Throat pain Respiratory: Denies: Cough, Dyspnea Cardiovascular: Denies: Chest pain, Syncope Endocrine: Denies: Fatigue Gastrointestinal: Reports: Abdominal pain. Denies: Constipation, Diarrhea, Hematemesis, Hematochezia, Nausea, Vomiting Genitourinary: Reports: Dysuria. Denies: Frequency, Hematuria Musculoskeletal: Reports: Back pain, Myalgia. Denies: Arthralgia, Joint swelling Skin: Denies: Bruising, Change in color, Rash Neurological: Denies: Headache Psychiatric: Denies: Anxiety Hematological/Lymphatic: Denies: Blood Clots, Easy bleeding, Easy bruising Past Medical History - SOCIAL HISTORY Smoking Status: Never smoker Drug Use: None - RESPIRATORY Hx Respiratory Disorders: No - CARDIOVASCULAR Hx Cardio Disorders: No - NEURO Hx Neuro Disorders: No - GI Hx GI Disorders: No - Hx Genitourinary Disorders: No - ENDOCRINE Hx Endocrine Disorders: Yes Hx Diabetes: Yes - MUSCULOSKELETAL Hx Musculoskeletal Disorders: No - PSYCH Hx Psych Problems: Yes Hx Depression: Yes - HEMATOLOGY/ONCOLOGY Hx Hematology/Oncology Disorders: No Family Medical History Hx Diabetes: Father, Mother, Brother/Sister, Grandparents Hx Heart Disease: Father, Mother, Grandparents Hx HTN: Father, Mother Physical Exam - General General Appearance: Alert, Oriented x3, Cooperative, No acute distress Limitations: No limitations - Head Head exam: Normal inspection - Eye Eye exam: Normal appearance. negative: Conjunctival injection - ENT ENT exam: Normal exam, Mucous membranes moist Ear exam: Normal external inspection Nasal Exam: Normal inspection Mouth exam: Normal external inspection - Neck Neck exam: Normal inspection - Respiratory Respiratory exam: Normal lung sounds bilaterally. negative: Respiratory distress, Rhonchi, Stridor, Wheezes - Cardiovascular Cardiovascular Exam: Regular rate, Normal rhythm, Normal heart sounds - GI/Abdominal GI/Abdominal exam: Soft. negative: Distended, Guarding, Rebound, Rigid, Tenderness - Rectal Rectal exam: Deferred - exam: Deferred - Extremities Extremities exam: Normal inspection, Full ROM, Normal capillary refill. negative: Tenderness - Back Back exam: Reports: Normal inspection, CVA tenderness (L), Tenderness. Denies: Paraspinal tenderness, Vertebral tenderness - Neurological Neurological exam: Alert, Oriented X3 - Psychiatric Psychiatric exam: Normal affect, Normal mood. negative: Agitated, Anxious - Skin Skin exam: Dry, Intact, Normal color, Warm. negative: Erythema Course - Reevaluation(s) Reevaluation #1: No acute changes on the CBC. 02/21/18 23:53 02/21/18 23:57 CR 1.5. Prior was 1.3 02/22/18 00:[address] was reviewed. Nonspecific periportal and peripancreatic adenopathy with ST nodules adjacent to the stomach and liver. Limited without contrast. Follow up CT in 1-3 months. Small fat containing right inguinal hernia. Small R sided punctate stone. No evidence of appendicitis. 02/22/18 00:[address] finding and renal blood test findings We discussed the need to call his doctor this week to review all the test and arrange the appropriate follow up 02/22/18 00:36 He already has follow up on Saturday at 1pm with his PCP. He will discuss the UTI, CT scan, CRI. 02/22/18 00:38 Urine Culture ordered. Patient aware this will likely be ready on Saturday for his PCP appointment 02/22/18 00:46 Due recurrent UTI a referral was placed with urology The patient appears very comfortable. He was given 2 [place] for home and may take Tylenol (avoiding NSAIDS). If pain not controlled he is to return. Medical Decision Making - Lab Data Result diagrams: 02/21/18 23:34 02/21/18 23:34 Disposition Disposition: Discharge Clinical Impression: Flank pain Urinary tract infection Qualifiers: Urinary tract infection type: site unspecified Hematuria presence: without hematuria Qualified Code(s): N39.0 - Urinary tract infection, site not specified Disposition: Home, Self-Care Condition: (1) Good Instructions: Urinary Tract Infection in Men (ED), Chronic Kidney Disease (ED) , Flank Pain (ED) Additional Instructions: Follow up as scheduled Saturday You should stay hydrated and have your kidney tests rechecked in the next 1-2 weeks Avoid Motrin for now until your doctor rechecks your kidney function You will need a follow up CT scan in 1 month with your doctor due to the findings on today's CT scan of some swollen glands and soft tissue nodules in the abdomen. You will be able to check the urine culture on Saturday to ensure your urinary tract infection is being treated Prescriptions: Cephalexin [Keflex] 500 mg PO QID #40 cap Referrals: GEORGIANA MORALES M.D. [MEDICAL DOCTOR] - [facility] [Provider Group] Forms: Patient Portal Access Time of Disposition: 00:39 Quality - Quality Measures Quality Measures: N/A - Blood Pressure Screening Does Patient Have Any of the Following: No, Active Dx of HTN Blood Pressure Classification: Pre-Hypertensive BP Reading Systolic Measurement: 123 Diastolic Measurement: 83 Screening for High Blood Pressure: < Normal BP, F/U Not Required > [G8783]
[2018-02-21 23:42] LABS: BASO % 0.4 % (0-6); EOS % 2.2 % (0-6); GRAN % 62.1 % (47-80); HEMATOCRIT 43.2 % (42.0-52.0); HEMOGLOBIN 14.9 gm/dl (14.0-18.0); LYMPH % 26.2 % (16-45); MEAN CELL VOLUME 86.6 fl (81-97); MEAN CORPUSCULAR HEMOGLOBIN 29.9 pg (27-33); MEAN CORPUSCULAR HGB CONC 34.5 g/dl (32-36); MEAN PLATELET VOLUME 9.4 fl (7.4-10.4); MONO % 9.1 % (0-9); PLATELET COUNT 213 K/uL (130-400); RED BLOOD COUNT 4.99 M/uL (4.40-5.70); RED CELL DISTRIBUTION WIDTH 12.9 % (11.5-14.5); WHITE BLOOD COUNT W/O DIFF 9.1 K/uL (4.2-12.2)
[2018-02-21 23:50] LABS: CREATININE 1.5 mg/dL (0.7-1.2)
[2018-02-22 00:12] LABS: URINE APPEARANCE CLEAR; URINE BILIRUBIN NEGATIVE (NEGATIVE); URINE BLOOD NEGATIVE (NEGATIVE); URINE COLOR YELLOW; URINE KETONE 15 mg/dL (NEGATIVE); URINE LEUKOCYTE ESTERASE TRACE (NEGATIVE); URINE NITRITE NEGATIVE (NEGATIVE); URINE PROTEIN NEGATIVE (NEGATIVE); URINE UROBILINOGEN 0.2 E.U./dL (0.20 - 1.00)
[2018-02-22 00:19] LABS: URINE GLUCOSE (UA) >=1000 mg/dL (NEGATIVE)
[2018-02-22 00:21] LABS: URINE BACTERIA FEW; URINE EPITHELIAL CELLS 0 - 2 (FEW); URINE RBC 0 - 2 (NONE SEEN); URINE WBC 16 - 20 (0-2/hpf)
[2018-02-22] MEDS: CEPHALEXIN 500 MG CAPSULE PO STA (00:41)
[2018-02-22] MEDS: HYDROCODONE/APAP 5/325MG TABLET PO ONE (00:41)
--- NOTE | 2018-02-24 08:09 | CT SCAN REPORT ---
EXAM: CT OF THE ABDOMEN AND PELVIS WITHOUT CONTRAST HISTORY: LEFT FLANK PAIN. TECHNIQUE: Standard CT imaging of the abdomen and pelvis was obtained without intravenous contrast. Coronal and sagittal reformations are provided. Comparison: 07/17/14. FINDINGS: The lung bases are clear other than a few tiny nodules at the right lung base which were present previously. The liver is unremarkable. The gallbladder is contracted without calcified stones. No fat stranding surrounding the pancreas. The spleen is normal in size. The adrenal glands appear normal. There is a 1 mm calculus in each kidney. No hydronephrosis. No calculus along the course of the ureters. The bladder is unremarkable. The stomach is distended with ingested material. No small bowel dilatation. The colon and appendix appear normal. There are several mildly enlarged lan hepatis lymph nodes measuring up to 15 mm in short axis diameter, and an enlarged pericaval lymph node measuring 16 mm. On prior exam from 2014 these lymph nodes both measured 15 mm. No new retroperitoneal or mesenteric adenopathy. No destructive osseous lesion is identified. No free fluid or free air is identified. IMPRESSION: 1. TINY 1 MM CALCULI IN EACH KIDNEY. NO EVIDENCE FOR OBSTRUCTIVE UROPATHY. 2. LAN HEPATIS AND RETROPERITONEAL ADENOPATHY IS NOT SIGNIFICANTLY CHANGED FROM 07/17/14. JOB NUMBER: [id number] MTDD
== END 2018-02-22 00:50 | disposition home or self-care (01) ==
LOC: ER 23:21
DX: N39.0 Urinary tract infection, site not specified (principal); R10.9 Unspecified abdominal pain; E11.9 Type 2 diabetes mellitus without complications; Z87.442 Personal history of urinary calculi
CPT/HCPCS: 74176; 80048; 81001; 85025; 99283; 99284

== ENCOUNTER 2019-01-06 21:18 | Emergency (ER) | payer BC ==
[2019-01-06] MEDS ORDERED: 0.9 % SODIUM CHLORIDE 1,000 ML BAG IV ONE (22:24)
[2019-01-06] MEDS ORDERED: ONDANSETRON HCL IV 4 MG/2 ML VIAL IV ONE (22:24)
[2019-01-06] MEDS ORDERED: KETOROLAC 30 MG/ML VIAL IVP ONE (22:24)
[2019-01-06 22:58] LABS: ABSOLUTE NEUTROPHIL COUNT 4.77; BASO % 0.7 % (0-6); EOS % 4.7 % (0-6); GRAN % 53.3 % (47-80); HEMOGLOBIN 14.7 gm/dl (14.0-18.0); LYMPH % 30.8 % (16-45); MEAN CELL VOLUME 84.6 fl (81-97); MEAN CORPUSCULAR HEMOGLOBIN 28.9 pg (27-33); MEAN CORPUSCULAR HGB CONC 34.2 g/dl (32-36); MEAN PLATELET VOLUME 10.1 fl (7.4-10.4); MONO % 10.5 % (0-9); PLATELET COUNT 229 K/uL (130-400); RED BLOOD COUNT 5.08 M/uL (4.40-5.70); RED CELL DISTRIBUTION WIDTH 12.7 % (11.5-14.5); WHITE BLOOD COUNT W/O DIFF 8.9 K/uL (4.2-12.2)
[2019-01-06 23:02] LABS: BLOOD UREA NITROGEN 10 mg/dL (6-20); CREATININE 1.2 mg/dL (0.7-1.2); EST GLOMERULAR FILTRATION RATE > 60 mL/min
[2019-01-06 23:05] LABS: GLUCOSE,RANDOM 211 mg/dL (74-109)
[2019-01-07] MEDS ORDERED: 0.9 % SODIUM CHLORIDE 1,000 ML BAG IV ONE (00:15)
[2019-01-07] MEDS ORDERED: HYDROMORPHONE HCL 2 MG/ML VIAL IVP ONE (00:42)
--- NOTE | 2019-01-07 00:44 | Emergency Department Record ---
History of Present Illness - General Chief complaint: Male Urogenital Problem Stated complaint: LT FLANK PAIN Time Seen by Provider: 01/06/19 22:15 Source: Patient Mode of Arrival: Ambulatory Limitations: No limitations - History of Present Illness Initial comments: pt has pain in his l flank. he states his dr took an xray and told him he had a kidney stone. the pain has gotten worse. MD Complaint: Other Onset/Timin -: Week(s) Location: Left flank Radiation: LLQ Quality: Sharp, Stabbing Consistency: Intermittent Improves with: None Worsens with: None Reports: Nausea/vomiting - Related Data Previous Rx's Medication Instructions Recorded Cephalexin [Keflex] 500 mg PO QID #40 cap 02/22/18 Hydrocodone/Acetaminophen [[place] 1 each PO Q6HR #12 tablet 01/07/19 5-325 Tablet] Tamsulosin HCl [Flomax] 0.4 mg PO DAILY #7 cap.er.24h 01/07/19 Allergies Allergy/AdvReac Type Severity Reaction Status Date / Time amoxicillin Allergy heartburn Verified 02/21/18 23:35 lisinopril AdvReac RESPIRATORY Verified 02/21/18 23:35 IRRITATION Travel Screening - Travel/Exposure Within Last 30 Days Have you traveled within the last 30 days?: No - Travel/Exposure Within Last Year Have you traveled outside the [place] in the last year?: No - Additonal Travel Details Have you been exposed to anyone with a communicable illness?: No - Travel Symptoms Symptom Screening: None Review of Systems Reviewed: No additional complaints except as noted below Constitutional: Reports: As per HPI. Denies: Chills, Fever, Malaise, Night sweats, Weakness, Weight change Eyes: Reports: As per HPI. Denies: Eye discharge, Eye pain, Photophobia, Vision change ENT: Reports: As per HPI. Denies: Congestion, Dental pain, Ear pain, Epistaxis, Hearing loss, Throat pain Respiratory: Reports: As per HPI. Denies: Cough, Dyspnea, Hemoptysis, Stridor, Wheezes Cardiovascular: Reports: As per HPI. Denies: Arrhythmia, Chest pain, Dyspnea on exertion, Edema, Murmurs, Orthopnea, Palpitations, Paroxysmal nocturnal dyspnea, Rheumatic Fever, Syncope Endocrine: Reports: As per HPI. Denies: Fatigue, Heat or cold intolerance, Polydipsia, Polyuria Gastrointestinal: Reports: As per HPI, Nausea, Vomiting. Denies: Abdominal pain, Constipation, Diarrhea, Hematemesis, Hematochezia, Melena Genitourinary: Reports: As per HPI. Denies: Dysuria, Frequency, Hematuria, Incontinence, Retention, Testicular pain, Testicular mass, Urgency Musculoskeletal: Reports: As per HPI. Denies: Arthralgia, Back pain, Gout, Joint swelling, Myalgia, Neck pain Skin: Reports: As per HPI. Denies: Bruising, Change in color, Change in hair/nails, Lesions, Pruritus, Rash Neurological: Reports: As per HPI. Denies: Abnormal gait, Confusion, Headache, Numbness, Paresthesias, Seizure, Tingling, Tremors, Vertigo, Weakness Psychiatric: Reports: As per HPI. Denies: Anxiety, Auditory hallucinations, Depression, Homicidal thoughts, Suicidal thoughts, Visual hallucinations Hematological/Lymphatic: Reports: As per HPI. Denies: Anemia, Blood Clots, Easy bleeding, Easy bruising, Swollen glands Past Medical History - SOCIAL HISTORY Smoking Status: Never smoker - RESPIRATORY Hx Respiratory Disorders: No - CARDIOVASCULAR Hx Cardio Disorders: No - NEURO Hx Neuro Disorders: No - GI Hx GI Disorders: No - Hx Genitourinary Disorders: No Hx Kidney Stones: Yes - ENDOCRINE Hx Endocrine Disorders: Yes Hx Diabetes: Yes - MUSCULOSKELETAL Hx Musculoskeletal Disorders: No - PSYCH Hx Psych Problems: Yes Hx Depression: Yes - HEMATOLOGY/ONCOLOGY Hx Hematology/Oncology Disorders: No Family Medical History Any Significant Family History?: Yes Hx Diabetes: Father, Mother, Brother/Sister, Grandparents Hx Heart Disease: Father, Mother, Grandparents Hx HTN: Father, Mother Physical Exam - General General Appearance: Alert, Oriented x3, Cooperative, Mild distress - Head Head exam: Normal inspection - Eye Eye exam: Normal appearance, PERRL, EOMI Pupils: Normal accommodation - ENT ENT exam: Normal exam, Mucous membranes moist, Normal external ear exam, Normal orophraynx Ear exam: Normal external inspection. negative: External canal tenderness Nasal Exam: Normal inspection. negative: Discharge, Sinus tenderness Mouth exam: Normal external inspection, Tongue normal Teeth exam: Normal inspection. negative: Dental caries Throat exam: Normal inspection. negative: Tonsillar erythema, Tonsillar exudate - Neck Neck exam: Normal inspection, Full ROM. negative: Tenderness - Respiratory Respiratory exam: Normal lung sounds bilaterally. negative: Respiratory distress - Cardiovascular Cardiovascular Exam: Regular rate, Normal rhythm, Normal heart sounds - GI/Abdominal GI/Abdominal exam: Soft, Normal bowel sounds. negative: Tenderness - Rectal Rectal exam: Deferred - exam: Deferred - Extremities Extremities exam: Normal inspection, Full ROM, Normal capillary refill. negative: Tenderness - Back Back exam: Reports: Normal inspection, Full ROM. Denies: Muscle spasm, Rash noted, Tenderness - Neurological Neurological exam: Alert, CN II-XII intact, Normal gait, Oriented X3 - Psychiatric Psychiatric exam: Normal affect, Normal mood - Skin Skin exam: Dry, Intact, Normal color, Warm Course Vital Signs 01/06/19 01/07/19 21:49 00:21 Pulse Rate 69 Pulse Rate [ 72 Right] Respiratory 18 16 Rate Blood Pressure 127/78 Blood Pressure 100/70 [Right Arm] Pulse Ox 100 98 Medical Decision Making - Lab Data Result diagrams: 01/06/19 22:22 01/06/19 22:22 Lab Results 01/06/19 01/06/19 Range/Units 22:22 22:22 WBC 8.9 (4.2-12.2) K/uL RBC 5.08 (4.40-5.70) M/uL Hgb 14.7 (14.0-18.0) gm/dl Hct 43.0 (42.0-52.0) % MCV 84.6 (81-97) fl MCH 28.9 (27-33) pg MCHC 34.2 (32-36) g/dl RDW 12.7 (11.5-14.5) % Plt Count 229 (130-400) K/uL MPV 10.1 (7.4-10.4) fl Gran % 53.3 (47-80) % Lymphocytes % 30.8 (16-45) % Monocytes % 10.5 H (0-9) % Eosinophils % 4.7 (0-6) % Basophils % 0.7 (0-6) % Absolute Neutrophils 4.77 Sodium 141 (136-145) mmol/L Potassium 3.9 (3.4-4.5) mmol/L Chloride 99 (98-107) mmol/L Carbon Dioxide 28.0 (22-29) mmol/L Anion Gap 14.0 (7-16) BUN 10 (6-20) mg/dL Creatinine 1.2 (0.7-1.2) mg/dL Estimated GFR > 60 mL/min Random Glucose 211 H (74-109) mg/dL Calcium 9.8 (8.6-10.0) mg/dL Disposition Disposition: Discharge Clinical Impression: Renal stone Hydronephrosis Qualifiers: Hydronephrosis type: with ureteral calculous obstruction Qualified Code(s): N13.2 - Hydronephrosis with renal and ureteral calculous obstruction Disposition: Home, Self-Care Condition: (1) Good Instructions: Kidney Stones (ED), Renal Colic (ED), How to Strain Your Urine (ED) Additional Instructions: follow up with family doctor and dr albrecht. return sooner if worse. push fluids. Prescriptions: Hydrocodone/Acetaminophen [[place] 5-325 Tablet] 1 each PO Q6HR #12 tablet Tamsulosin HCl [Flomax] 0.4 mg PO DAILY #7 cap.er.24h Referrals: Hitesh Albrecht M.D. [MEDICAL DOCTOR] - [facility] [Provider Group] Forms: Patient Portal Access Quality - Quality Measures Quality Measures: N/A - Blood Pressure Screening Does Patient Have Any of the Following: No Blood Pressure Classification: Pre-Hypertensive BP Reading Systolic Measurement: 127 Diastolic Measurement: 78 Screening for High Blood Pressure: < Pre-Hypertensive BP, F/U Documented > [G8950] Pre-Hypertensive Follow-up Interventions: Follow-up with rescreen every year.
[2019-01-07 00:51] LABS: URINE APPEARANCE CLEAR; URINE BILIRUBIN NEGATIVE (NEGATIVE); URINE BLOOD TRACE-I (NEGATIVE); URINE COLOR YELLOW; URINE KETONE 15 mg/dL (NEGATIVE); URINE LEUKOCYTE ESTERASE NEGATIVE (NEGATIVE); URINE NITRITE NEGATIVE (NEGATIVE); URINE PROTEIN NEGATIVE (NEGATIVE); URINE UROBILINOGEN 0.2 E.U./dL (0.20 - 1.00)
[2019-01-07 00:59] LABS: URINE GLUCOSE (UA) >=1000 mg/dL (NEGATIVE)
[2019-01-07] MEDS ORDERED: HYDROCODONE/APAP 5/325MG TABLET PO ONE (01:57)
== END 2019-01-07 02:08 | disposition home or self-care (01) ==
LOC: ER 21:18
DX: N13.2 Hydronephrosis with renal and ureteral calculous obstruction (principal); R11.2 Nausea with vomiting, unspecified
CPT/HCPCS: 74176; 80048; 81003; 85025; 96374; 96375; 99284; J1885; J2405; J7030